=== PATIENT | male | born 1945 | race Caucasian/White ===

== ENCOUNTER → 2017-01-17 | Outpatient (CLI) | payer MEDICARE ==
[~2017-01-17] MED LIST: ARIP5TAB9 PO; ASPI-556 PO; ATOR40TA28 PO; CITA20TA9 PO; FENO134C PO; HYDR12.54 PO; INSLAN SQ; LISI40TA4 PO; METF500T4 PO; PHEN100C23 PO
== END | disposition home or self-care (01) ==
LOC: RADPV 07:53
PROVIDERS: ATTEND Internal Medicine Nephrology
DX: N40.0 Benign prostatic hyperplasia without lower urinary tract symptoms (principal); N28.1 Cyst of kidney, acquired
CPT/HCPCS: 76770

== ENCOUNTER 2018-01-06 03:07 | Inpatient (IN) | payer MEDICARE, OTHER ==
[~2018-01-06] VITALS: Ht 185.4 cm; Wt 89.4 kg
[~2018-01-06 03:07] MED LIST changes: +ARIP5TAB8 PO; -ARIP5TAB9 PO; -ASPI-556 PO; +CITA-106 PO; -CITA20TA9 PO; -FENO134C PO; -INSLAN SQ; +METF-444 PO; -METF500T4 PO
[2018-01-06 04:04] LABS: GLUCOSE,POINT OF CARE 136 MG/DL (70-110)
[2018-01-06 04:44] LABS: BASOPHILS % (AUTO) 0.8 % (0.0-2.0); EOSINOPHILS % (AUTO) 8.2 % (1.0-6.0); HEMATOCRIT 36.4 % (41-53); HEMOGLOBIN 12.2 g/dL (13.5-17.5); LYMPHOCYTES # (AUTO) 1.3 K/uL (1.0-4.8); LYMPHOCYTES % (AUTO) 15.6 % (22.0-44.0); MEAN CORPUSCULAR HEMOGLOBIN 29.2 pg (26.0-34.0); MEAN CORPUSCULAR HGB CONC 33.6 G/dL (31.0-37.0); MEAN CORPUSCULAR VOLUME 87 fL (80-100); MONOCYTES # (AUTO) 0.6 K/uL (0.1-1.0); MONOCYTES % (AUTO) 7.1 % (2.0-9.0); NEUTROPHILS # (AUTO) 5.8 K/uL (1.8-7.7); NEUTROPHILS % (AUTO) 68.3 % (40.0-70.0); PLATELET COUNT (AUTO) 255 K/uL (150-450); RED BLOOD CELL COUNT(AUTO) 4.19 MIL/uL (4.50-5.90)
[2018-01-06 04:58] LABS: ANION GAP 9 mmol/L (8-16); CALCIUM, TOTAL 8.8 mg/dL (8.8-10.5); CARBON DIOXIDE 28 mmol/L (22-29); CHLORIDE 98 mmol/L (98-107); CREATININE 1.82 mg/dL (0.60-1.30); GLOMERULAR FILTR. RATE CALC 37 mL/min (>60); GLUCOSE,RANDOM 140 mg/dL (70-110); POTASSIUM 4.8 mmol/L (3.5-5.1); SODIUM SERUM 135 mmol/L (136-145); UREA NITROGEN, BLOOD 46 mg/dL (7-18)
[2018-01-06 05:02] LABS: ALANINE AMINOTRANSFERASE 43 U/L (12-78); ALBUMIN 3.5 g/dL (3.4-5.0); ALKALINE PHOSPHATASE 142 U/L (46-116); ASPARTATE AMINOTRANSFERASE 23 U/L (15-37); BILIRUBIN,TOTAL 0.1 mg/dL (0.1-1.0); TOTAL PROTEIN, SERUM 7.1 g/dL (6.4-8.2)
[2018-01-06 06:16] LABS: AMPHET/METH SCREEN,URINE NEGATIVE (NEGATIVE); BARBITURATE SCREEN, URINE NEGATIVE (NEGATIVE); BENZODIAZEPINES SCREEN,URINE NEGATIVE (NEGATIVE); CANNABINOID SCREEN,URINE NEGATIVE (NEGATIVE); COCAINE SCREEN,URINE NEGATIVE (NEGATIVE); METHADONE SCREEN, URINE NEGATIVE (NEGATIVE); OPIATE SCREEN,URINE NEGATIVE (NEGATIVE)
[2018-01-06 06:17] LABS: PHENCYCLIDINE SCREEN,URINE NEGATIVE (NEGATIVE)
[2018-01-06] MEDS ORDERED: HALOPERIDOL 5 MG TABLET PO PRN (10:15)
[2018-01-06] MEDS ORDERED: ZOLPIDEM TARTRATE 10 MG TABLET PO PRN (10:15)
[2018-01-06 13:08] VITALS: BP 143/95
[2018-01-06] MEDS: LORazepam 2 MG TABLET PO PRN ×2 (14:44→23:34)
[2018-01-06] MEDS: HYDROCHLOROTHIAZIDE 25 MG TABLET PO SCH (15:00)
[2018-01-06] MEDS: LISINOPRIL 20 MG TABLET PO SCH (15:00)
[2018-01-06] MEDS: CEPHALEXIN MONOHYDRATE 500 MG CAPSULE PO SCH (17:14)
[2018-01-06] MEDS: SULFAMETHOX/TRIMETH DS 800-160 MG/TABLET PO SCH (17:14)
[2018-01-06] MEDS: PHENYTOIN SODIUM 100 MG ER CAPSULE PO SCH (17:15)
[2018-01-06] MEDS: MetFORMIN HCL 500 MG TABLET PO SCH (17:16)
[2018-01-06 17:19] LABS: GLUCOMETER DEV NAME(LOC) 3EX 1; GLUCOSE,POINT OF CARE 122 MG/DL (70-110)
[2018-01-06 18:46] VITALS: BP 118/63
[2018-01-06] MEDS ORDERED: PETROLATUM,WHITE 71 GM JELLY TP PRN (20:15)
[2018-01-06] MEDS ORDERED: DOCUSATE SODIUM 100 MG CAPSULE PO PRN (20:15)
[2018-01-06] MEDS ORDERED: MAGNESIUM HYDROXIDE SUSPENSION 30 ML UDCUP PO PRN (20:15)
[2018-01-06] MEDS ORDERED: ALBUTEROL SULFATE HFA 90 MCG/PUFF 8 GM INHALER IH PRN (20:15)
[2018-01-06] MEDS ORDERED: LOPERAMIDE HCL 2 MG CAPSULE PO PRN (20:15)
[2018-01-06] MEDS ORDERED: MAG HYDROX/AL HYDROX/SIMETH ES 30 ML SUSPENSION UDCUP PO PRN (20:15)
[2018-01-06] MEDS ORDERED: IBUPROFEN 400 MG TABLET PO PRN (20:15)
[2018-01-06] MEDS ORDERED: ONDANSETRON HCL 4 MG TABLET PO PRN (20:15)
[2018-01-06] MEDS ORDERED: ACETAMINOPHEN 325 MG TABLET PO PRN (20:15)
[2018-01-06] MEDS ORDERED: CloNIDine HCL 0.1 MG TABLET PO PRN (20:15)
[2018-01-06] MEDS: ATORVASTATIN CALCIUM 40 MG TABLET PO SCH (20:17)
[2018-01-06 23:34] VITALS: BP 123/58
[2018-01-07] MEDS: CEPHALEXIN MONOHYDRATE 500 MG CAPSULE PO SCH ×3 (01:19→16:28)
[2018-01-07 06:30] LABS: GLUCOMETER DEV NAME(LOC) 3EX 1; GLUCOSE,POINT OF CARE 132 MG/DL (70-110)
[2018-01-07] MEDS: FERROUS SULFATE 325 MG EC TABLET PO SCH ×2 (06:49→16:28)
[2018-01-07] MEDS: MetFORMIN HCL 500 MG TABLET PO SCH (06:49)
[2018-01-07 06:53] LABS: HEMOGLOBIN A1C 5.7 % (4.5-6.2)
[2018-01-07 07:05] LABS: CHOL/HDL RATIO 5.6 (4.2-7.3); FREE T4 (FREE THYROXINE) 0.9 ng/dL (0.76-1.46); THYROID STIMULATING HORMONE 2.74 uIU/mL (0.36-3.74)
[2018-01-07 08:05] VITALS: BP 109/70
[2018-01-07] MEDS: SULFAMETHOX/TRIMETH DS 800-160 MG/TABLET PO SCH ×2 (08:50→16:28)
[2018-01-07] MEDS: CITALOPRAM HYDROBROMIDE 10 MG TABLET PO SCH (08:50)
[2018-01-07] MEDS: PHENYTOIN SODIUM 100 MG ER CAPSULE PO SCH ×3 (08:50→16:28)
[2018-01-07] MEDS: ARIPiprazole 5 MG TABLET PO SCH (08:50)
[2018-01-07] MEDS: LORazepam 2 MG TABLET PO PRN ×2 (08:52→17:50)
[2018-01-07] MEDS: HYDROCHLOROTHIAZIDE 25 MG TABLET PO SCH (08:55)
[2018-01-07] MEDS: LISINOPRIL 20 MG TABLET PO SCH (08:55)
[2018-01-07] MEDS: NICOTINE 14 MG/24 HOUR PATCH TD SCH (09:00)
[2018-01-07] MEDS: GlipiZIDE 5 MG TABLET PO SCH (16:28)
[2018-01-07 17:54] LABS: GLUCOMETER DEV NAME(LOC) 3EX 1; GLUCOSE,POINT OF CARE 77 MG/DL (70-110)
[2018-01-07 18:00] VITALS: BP 120/74
[2018-01-07] MEDS: ATORVASTATIN CALCIUM 40 MG TABLET PO SCH (20:42)
[2018-01-07 20:44] LABS: GLUCOMETER DEV NAME(LOC) 3EX 1; GLUCOSE,POINT OF CARE 75 MG/DL (70-110)
[2018-01-08] MEDS: CEPHALEXIN MONOHYDRATE 500 MG CAPSULE PO SCH ×3 (00:37→16:24)
[2018-01-08 00:53] VITALS: BP 111/59
[2018-01-08 05:43] LABS: GLUCOMETER DEV NAME(LOC) PVLAB139; GLUCOSE,POINT OF CARE 109 MG/DL (70-110)
[2018-01-08] MEDS: GlipiZIDE 5 MG TABLET PO SCH ×2 (07:11→16:24)
[2018-01-08] MEDS: FERROUS SULFATE 325 MG EC TABLET PO SCH ×2 (07:11→16:24)
[2018-01-08] MEDS: CITALOPRAM HYDROBROMIDE 10 MG TABLET PO SCH (08:11)
[2018-01-08] MEDS: SULFAMETHOX/TRIMETH DS 800-160 MG/TABLET PO SCH ×2 (08:11→16:24)
[2018-01-08] MEDS: ARIPiprazole 5 MG TABLET PO SCH (08:11)
[2018-01-08] MEDS: NICOTINE 14 MG/24 HOUR PATCH TD SCH (08:12)
[2018-01-08] MEDS: PHENYTOIN SODIUM 100 MG ER CAPSULE PO SCH ×3 (08:12→16:24)
[2018-01-08] MEDS: LISINOPRIL 20 MG TABLET PO SCH (08:18)
[2018-01-08] MEDS: HYDROCHLOROTHIAZIDE 25 MG TABLET PO SCH (08:18)
[2018-01-08] MEDS: LORazepam 2 MG TABLET PO PRN ×3 (08:19→16:37)
[2018-01-08 10:04] VITALS: BP 127/67
[2018-01-08 16:48] LABS: GLUCOMETER DEV NAME(LOC) 3EX 1; GLUCOSE,POINT OF CARE 71 MG/DL (70-110)
[2018-01-08 16:52] VITALS: BP 118/65
[2018-01-08] MEDS: ATORVASTATIN CALCIUM 40 MG TABLET PO SCH (20:05)
[2018-01-09] MEDS: CEPHALEXIN MONOHYDRATE 500 MG CAPSULE PO SCH ×3 (00:12→16:28)
[2018-01-09 00:15] VITALS: BP 141/73
[2018-01-09] MEDS: LORazepam 2 MG TABLET PO PRN ×4 (00:19→20:26)
[2018-01-09] MEDS: FERROUS SULFATE 325 MG EC TABLET PO SCH ×2 (07:03→16:47)
[2018-01-09] MEDS: GlipiZIDE 5 MG TABLET PO SCH ×2 (07:03→16:28)
[2018-01-09 07:13] LABS: GLUCOMETER DEV NAME(LOC) PVLAB139; GLUCOSE,POINT OF CARE 119 MG/DL (70-110)
[2018-01-09 07:22] LABS: CALCIUM, TOTAL 9.1 mg/dL (8.8-10.5); CREATININE 1.69 mg/dL (0.60-1.30); POTASSIUM 4.8 mmol/L (3.5-5.1)
[2018-01-09] MEDS: ARIPiprazole 5 MG TABLET PO SCH (08:03)
[2018-01-09] MEDS: LISINOPRIL 20 MG TABLET PO SCH (08:03)
[2018-01-09] MEDS: CITALOPRAM HYDROBROMIDE 10 MG TABLET PO SCH (08:03)
[2018-01-09] MEDS: PHENYTOIN SODIUM 100 MG ER CAPSULE PO SCH ×3 (08:04→16:28)
[2018-01-09] MEDS: SULFAMETHOX/TRIMETH DS 800-160 MG/TABLET PO SCH ×2 (08:04→16:28)
[2018-01-09] MEDS: HYDROCHLOROTHIAZIDE 25 MG TABLET PO SCH (08:04)
[2018-01-09 08:05] VITALS: BP 154/84
[2018-01-09] MEDS: NICOTINE 14 MG/24 HOUR PATCH TD SCH (09:00)
[2018-01-09] MEDS: SODIUM CHLORIDE 1 GM TABLET PO SCH (16:28)
[2018-01-09 16:32] LABS: GLUCOMETER DEV NAME(LOC) 3EX 1; GLUCOSE,POINT OF CARE 76 MG/DL (70-110)
[2018-01-09 19:26] VITALS: BP 144/73
[2018-01-09] MEDS: ATORVASTATIN CALCIUM 40 MG TABLET PO SCH (20:21)
[2018-01-10] MEDS: LORazepam 2 MG TABLET PO PRN ×3 (02:23→20:40)
[2018-01-10 05:49] LABS: GLUCOMETER DEV NAME(LOC) PVLAB139; GLUCOSE,POINT OF CARE 69 MG/DL (70-110)
[2018-01-10 06:43] LABS: GLUCOMETER DEV NAME(LOC) PVLAB139; GLUCOSE,POINT OF CARE 154 MG/DL (70-110)
[2018-01-10] MEDS: FERROUS SULFATE 325 MG EC TABLET PO SCH ×2 (06:52→16:55)
[2018-01-10] MEDS: GlipiZIDE 5 MG TABLET PO SCH ×2 (06:52→16:12)
[2018-01-10] MEDS: ARIPiprazole 5 MG TABLET PO SCH (08:25)
[2018-01-10] MEDS: SODIUM CHLORIDE 1 GM TABLET PO SCH ×2 (08:25→16:12)
[2018-01-10] MEDS: PHENYTOIN SODIUM 100 MG ER CAPSULE PO SCH ×3 (08:25→16:12)
[2018-01-10] MEDS: SULFAMETHOX/TRIMETH DS 800-160 MG/TABLET PO SCH ×2 (08:25→16:12)
[2018-01-10] MEDS: CEPHALEXIN MONOHYDRATE 500 MG CAPSULE PO SCH ×3 (08:25→16:12)
[2018-01-10] MEDS: HYDROCHLOROTHIAZIDE 25 MG TABLET PO SCH (08:25)
[2018-01-10] MEDS: CITALOPRAM HYDROBROMIDE 10 MG TABLET PO SCH (08:25)
[2018-01-10] MEDS: LISINOPRIL 20 MG TABLET PO SCH (08:26)
[2018-01-10 08:51] VITALS: BP 144/67
[2018-01-10 16:17] LABS: GLUCOMETER DEV NAME(LOC) 3EX 1; GLUCOSE,POINT OF CARE 94 MG/DL (70-110)
[2018-01-10 17:12] VITALS: BP 114/76
[2018-01-10] MEDS: ATORVASTATIN CALCIUM 40 MG TABLET PO SCH (20:37)
[2018-01-11] MEDS: CEPHALEXIN MONOHYDRATE 500 MG CAPSULE PO SCH ×3 (00:09→16:21)
[2018-01-11 05:43] LABS: GLUCOMETER DEV NAME(LOC) PVLAB139; GLUCOSE,POINT OF CARE 110 MG/DL (70-110)
[2018-01-11] MEDS: GlipiZIDE 5 MG TABLET PO SCH ×2 (06:49→16:21)
[2018-01-11] MEDS: FERROUS SULFATE 325 MG EC TABLET PO SCH ×2 (06:50→17:14)
[2018-01-11 06:51] LABS: CALCIUM, TOTAL 9.1 mg/dL (8.8-10.5); CREATININE 1.9 mg/dL (0.60-1.30); POTASSIUM 5.4 mmol/L (3.5-5.1)
[2018-01-11] MEDS: ARIPiprazole 5 MG TABLET PO SCH (08:02)
[2018-01-11] MEDS: SODIUM CHLORIDE 1 GM TABLET PO SCH ×4 (08:02→16:22)
[2018-01-11] MEDS: SULFAMETHOX/TRIMETH DS 800-160 MG/TABLET PO SCH (08:02)
[2018-01-11] MEDS: LISINOPRIL 20 MG TABLET PO SCH (08:03)
[2018-01-11] MEDS: PHENYTOIN SODIUM 100 MG ER CAPSULE PO SCH ×3 (08:03→16:21)
[2018-01-11] MEDS: HYDROCHLOROTHIAZIDE 25 MG TABLET PO SCH (08:03)
[2018-01-11] MEDS: CITALOPRAM HYDROBROMIDE 10 MG TABLET PO SCH (08:03)
[2018-01-11] MEDS ORDERED: SODIUM POLYSTYRENE SULFONATE 15 GM/60 ML SUSPENSION BOTTLE PO ONE (08:30)
[2018-01-11] MEDS: AmLODIPine BESYLATE 5 MG TABLET PO SCH (09:24)
[2018-01-11] MEDS: HydrALAZINE HCL 25 MG TABLET PO SCH ×3 (09:25→16:21)
[2018-01-11] MEDS: LORazepam 2 MG TABLET PO PRN ×2 (09:27→19:22)
[2018-01-11 10:10] VITALS: BP 136/85
[2018-01-11 16:38] LABS: GLUCOMETER DEV NAME(LOC) 3EX 1; GLUCOSE,POINT OF CARE 105 MG/DL (70-110)
[2018-01-11 17:23] VITALS: BP 93/56
[2018-01-11] MEDS: ATORVASTATIN CALCIUM 40 MG TABLET PO SCH (20:20)
[2018-01-12] MEDS: CEPHALEXIN MONOHYDRATE 500 MG CAPSULE PO SCH ×2 (00:48→08:56)
[2018-01-12 05:38] LABS: GLUCOMETER DEV NAME(LOC) PVLAB139; GLUCOSE,POINT OF CARE 147 MG/DL (70-110)
[2018-01-12] MEDS: GlipiZIDE 5 MG TABLET PO SCH (06:15)
[2018-01-12] MEDS: FERROUS SULFATE 325 MG EC TABLET PO SCH (06:15)
[2018-01-12 06:21] LABS: CALCIUM, TOTAL 8.7 mg/dL (8.8-10.5); CREATININE 1.71 mg/dL (0.60-1.30); POTASSIUM 4.5 mmol/L (3.5-5.1)
[2018-01-12] MEDS: SODIUM CHLORIDE 1 GM TABLET PO SCH ×2 (08:57→12:37)
[2018-01-12] MEDS: AmLODIPine BESYLATE 5 MG TABLET PO SCH (08:57)
[2018-01-12] MEDS: HydrALAZINE HCL 25 MG TABLET PO SCH ×2 (08:57→12:37)
[2018-01-12] MEDS: PHENYTOIN SODIUM 100 MG ER CAPSULE PO SCH ×2 (08:57→12:37)
[2018-01-12] MEDS: ARIPiprazole 5 MG TABLET PO SCH (08:57)
[2018-01-12] MEDS: CITALOPRAM HYDROBROMIDE 10 MG TABLET PO SCH (08:57)
[2018-01-12 09:48] VITALS: BP 165/97
[2018-01-12] MEDS ORDERED: CITA10TA68 PO (11:59)
[2018-01-12] MEDS ORDERED: AMLO-511 PO (13:05)
[2018-01-12] MEDS ORDERED: CEPH500 PO (13:05)
[2018-01-12] MEDS ORDERED: NACL1 PO (13:06)
[2018-01-12] MEDS ORDERED: GLIP5 PO (13:06)
[2018-01-12] MEDS ORDERED: HYDR25TA84 PO (13:06)
[2018-01-12] MEDS ORDERED: FERR-89 PO (13:13)
== END 2018-01-12 14:55 | disposition home or self-care (01) | DRG 885 ==
LOC: EMS 03:08 → 3EX 11:28
DX: F33.2 Major depressive disorder, recurrent severe without psychotic features (principal); R45.851 Suicidal ideations; E87.1 Hypo-osmolality and hyponatremia; N17.9 Acute kidney failure, unspecified; G40.909 Epilepsy, unspecified, not intractable, without status epilepticus; E78.5 Hyperlipidemia, unspecified; D64.9 Anemia, unspecified; F41.9 Anxiety disorder, unspecified; N18.9 Chronic kidney disease, unspecified; E11.22 Type 2 diabetes mellitus with diabetic chronic kidney disease; I12.9 Hypertensive chronic kidney disease with stage 1 through stage 4 chronic kidney disease, or unspecified chronic kidney disease; Z90.49 Acquired absence of other specified parts of digestive tract
CPT/HCPCS: 83036; 84439; 84443; 87081; 99285; G0480